=== PATIENT | male | born 1960 | race Caucasian/White ===

== ENCOUNTER 2019-06-18 09:42 | Emergency (ER) | payer MEDICARE, OTHER ==
[~2019-06-18] VITALS: Ht 170.2 cm; Wt 70.5 kg
[2019-06-18 09:43] VITALS: BP 111/75
[2019-06-18] MEDS ORDERED: HYDROcodone/acetaminophen 5mg/325mg tablet PO ONE (10:20)
== END 2019-06-18 10:48 | disposition home or self-care (01) ==
LOC: ER 09:42
DX: M25.561 Pain in right knee (principal); I10 Essential (primary) hypertension; G89.29 Other chronic pain; Z98.890 Other specified postprocedural states; X50.1XXA Overexertion from prolonged static or awkward postures, initial encounter; Y93.89 Activity, other specified; Y92.89 Other specified places as the place of occurrence of the external cause; Y99.8 Other external cause status
CPT/HCPCS: 29505; 73564; 99283